=== PATIENT | male | born 1980 | race Caucasian/White ===

== ENCOUNTER 2021-10-06 21:36 | Inpatient (IN) | payer SELFPAY ==
[~2021-10-06] VITALS: Ht 165.1 cm; Wt 102.5 kg
[2021-10-06 23:08] LABS: CHLORIDE 108 mEq/L (98-107)
[2021-10-06 23:12] LABS: ETHANOL BLOOD < 10 mg/dL
[2021-10-06 23:17] LABS: CREATINE KINASE 89 IU/L (39-308)
[2021-10-06 23:19] LABS: BASOPHILS % 0.4 % (0.0-2.0); EOSINOPHILS % 1.3 % (0.0-5.0); LYMPHOCYTES % 12.2 % (20.0-50.0); MEAN CORPUSCULAR HEMOGLOBIN 25.1 pg (28.0-32.0); MEAN CORPUSCULAR VOLUME 79.4 fL (80.0-94.0); MEAN PLATELET VOLUME 8.2 fl (7.4-10.4); MONOCYTES % 12.9 % (2.0-8.0); NEUTROPHILS % 73.2 % (40.0-76.0); PLATELET 254 x1000/uL (130-400); RED BLOOD CELL COUNT 4.78 mill/uL (4.7-6.1); RED CELL DISTRIBUTION WIDTH 20.2 % (11.6-14.6)
[2021-10-06 23:45] LABS: CLARITY URINE CLEAR (CLEAR); COLOR URINE DARK YELLOW (YELLOW); KETONES URINE TRACE (NEGATIVE); LEUKOCYTE ESTERASE URINE NEGATIVE (NEGATIVE); NITRITE URINE NEGATIVE (NEGATIVE); OCCULT BLOOD URINE NEGATIVE (NEGATIVE); PROTEIN URINE TRACE (NEGATIVE); SPECIFIC GRAVITY URINE 1.025 (1.005-1.030)
[2021-10-07] VITALS (7 sets, daily range): BP systolic 48–141; BP diastolic 16–83
[2021-10-07 00:01] LABS: *AMPHETAMINES SCREEN URINE NEGATIVE (NEGATIVE); *BARBITURATES SCREEN URINE NEGATIVE (NEGATIVE); *BENZODIAZEPINES SCREEN URINE NEGATIVE (NEGATIVE); *COCAINE SCREEN URINE NEGATIVE (NEGATIVE)
[2021-10-07 00:02] LABS: CANNABINOID URINE SCREEN NEGATIVE (NEGATIVE); METHADONE URINE SCREEN NEGATIVE (NEGATIVE); OPIATES URINE SCREEN NEGATIVE (NEGATIVE); PHENCYCLIDINE URINE SCREEN NEGATIVE (NEGATIVE)
[2021-10-07] MEDS ORDERED: SODIUM CHLORIDE 0.9% 1000ML BAG (SEPSIS BOLUS) IV ONE (00:15)
[2021-10-07] MEDS ORDERED: CEFTRIAXONE 1,000 MG in DEXTROSE 5% WATER 50 ML IV SCH (01:00)
[2021-10-07] MEDS ORDERED: AZITHROMYCIN 500MG/250ML 250 ML IV SCH (01:00)
[2021-10-07] MEDS ORDERED: CEFTRIAXONE SODIUM 1 G/VIAL ONE (01:05)
[2021-10-07] MEDS ORDERED: HYDROCODONE/ACETAMINOPHEN 5/325MG TABLET PO SCH (05:15)
[2021-10-07] MEDS ORDERED: MAGNESIUM/ALUMINUM HYDROXIDE/SIMETHICONE 30ML UDC PO PRN (08:00)
[2021-10-07] MEDS ORDERED: ACETAMINOPHEN 325MG TABLET PO PRN ×2 (08:00)
[2021-10-07] MEDS ORDERED: IPRATROPIUM/ALBUTEROL 0.5-3(2.5)MG/3ML NEB NEB PRN (08:00)
[2021-10-07] MEDS ORDERED: ENOXAPARIN 40MG/0.4ML SYR SUBCUT SCH (08:00)
[2021-10-07] MEDS ORDERED: CLONIDINE 0.1MG TABLET PO PRN (08:00)
[2021-10-07] MEDS ORDERED: ENOXAPARIN 30MG/0.3ML SYR SUBCUT SCH (09:00)
[2021-10-07] MEDS ORDERED: POTA20TA82 MT (10:09)
[2021-10-07] MEDS ORDERED: FAMO20TA8 MT (10:09)
[2021-10-07] MEDS ORDERED: AMIO100T4 MT (10:09)
[2021-10-07] MEDS ORDERED: FURO40TA5 MT (10:09)
[2021-10-07] MEDS ORDERED: SPIR25TA6 MT (10:09)
[2021-10-07] MEDS ORDERED: NALOXONE HCL 0.4MG/ML VIAL IV PRN (11:15)
[2021-10-07] MEDS ORDERED: FUROSEMIDE 40MG/4ML VIAL IVP SCH (13:30)
[2021-10-07] MEDS: HYDROCODONE/ACETAMINOPHEN 5/325MG TABLET PO PRN ×2 (15:00→21:12)
[2021-10-07 16:51] LABS: INR 1.1; PROTHROMBIN TIME 11.6 sec (9.6-11.0)
[2021-10-07] MEDS: FAMOTIDINE 20MG TABLET PO SCH (18:36)
[2021-10-07] MEDS: AMIODARONE HCL 200 MG TABLET PO SCH (18:37)
[2021-10-07] MEDS: SPIRONOLACTONE 25MG TABLET PO SCH (18:37)
[2021-10-07] MEDS ORDERED: *PATIENT'S OWN MEDICATION STORAGE XX SCH (23:00)
[2021-10-08] VITALS (12 sets, daily range): BP systolic 105–136; BP diastolic 71–97
[2021-10-08] MEDS ORDERED: HYDROCODONE/ACETAMINOPHEN 10/325MG TABLET PO SCH (00:48)
[2021-10-08] MEDS: ONDANSETRON HCL 4MG/2ML INJ IV PRN ×2 (04:46→18:05)
[2021-10-08 05:41] LABS: INR 1.1; PROTHROMBIN TIME 11.5 sec (9.6-11.0)
[2021-10-08 06:15] LABS: BASOPHILS % 0.2 % (0.0-2.0); EOSINOPHILS % 0.8 % (0.0-5.0); HEMATOCRIT. 41.9 % (42.0-52.0); LYMPHOCYTES % 13.8 % (20.0-50.0); MEAN CORPUSCULAR HEMOGLOBIN 25.1 pg (28.0-32.0); MEAN CORPUSCULAR VOLUME 80.6 fL (80.0-94.0); MEAN PLATELET VOLUME 8.5 fl (7.4-10.4); MONOCYTES % 10.7 % (2.0-8.0); NEUTROPHILS % 74.5 % (40.0-76.0); PLATELET 268 x1000/uL (130-400); RED CELL DISTRIBUTION WIDTH 20.1 % (11.6-14.6)
[2021-10-08 06:20] LABS: CHLORIDE 105 mEq/L (98-107)
[2021-10-08 06:31] LABS: PHOSPHORUS 3.9 mg/dL (2.5-4.9)
[2021-10-08] MEDS: SPIRONOLACTONE 25MG TABLET PO SCH (08:38)
[2021-10-08] MEDS: AMIODARONE HCL 200 MG TABLET PO SCH (08:38)
[2021-10-08] MEDS: FAMOTIDINE 20MG TABLET PO SCH (08:38)
[2021-10-08] MEDS ORDERED: FUROSEMIDE 40MG/4ML VIAL IVP SCH (09:00)
[2021-10-08] MEDS: FUROSEMIDE 40MG/4ML VIAL IVP SCH ×2 (09:00→17:57)
[2021-10-08] MEDS ORDERED: SODIUM BICARBONATE 4% (2.4MEQ) 5ML VIAL IV ONE (10:00)
[2021-10-08] MEDS: HYDROCODONE/ACETAMINOPHEN 10/325MG TABLET PO PRN ×2 (10:59→21:49)
[2021-10-08] MEDS: LACTULOSE 20G/30ML UDC PO SCH ×2 (14:18→21:02)
[2021-10-08] MEDS: DILTIAZEM HCL 30MG TABLET PO SCH ×2 (14:19→21:02)
[2021-10-08] MEDS ORDERED: LACTULOSE 20G/30ML UDC PO SCH (22:00)
[2021-10-08] MEDS ORDERED: CYCLOBENZAPRINE 10MG TABLET PO PRN (23:45)
[2021-10-09] VITALS (7 sets, daily range): BP systolic 108–143; BP diastolic 56–78
[2021-10-09 05:21] LABS: BASOPHILS % 0.3 % (0.0-2.0); EOSINOPHILS % 1.1 % (0.0-5.0); HEMATOCRIT. 40.7 % (42.0-52.0); HEMOGLOBIN. 12.9 g/dL (14.0-18.0); LYMPHOCYTES % 8.4 % (20.0-50.0); MEAN CORPUSCULAR HEMOGLOBIN 25.1 pg (28.0-32.0); MEAN PLATELET VOLUME 8.3 fl (7.4-10.4); MONOCYTES % 8.9 % (2.0-8.0); NEUTROPHILS % 81.3 % (40.0-76.0); PLATELET 291 x1000/uL (130-400); RED BLOOD CELL COUNT 5.16 mill/uL (4.7-6.1); RED CELL DISTRIBUTION WIDTH 19.3 % (11.6-14.6)
[2021-10-09 06:09] LABS: CHLORIDE 103 mEq/L (98-107)
[2021-10-09] MEDS: LACTULOSE 20G/30ML UDC PO SCH ×2 (06:29→14:34)
[2021-10-09] MEDS: DILTIAZEM HCL 30MG TABLET PO SCH ×2 (06:30→14:00)
[2021-10-09] MEDS: FUROSEMIDE 40MG/4ML VIAL IVP SCH (06:30)
[2021-10-09] MEDS: AMIODARONE HCL 200 MG TABLET PO SCH (09:31)
[2021-10-09] MEDS: SPIRONOLACTONE 25MG TABLET PO SCH (09:31)
[2021-10-09] MEDS: FAMOTIDINE 20MG TABLET PO SCH (09:31)
[2021-10-09] MEDS ORDERED: SODIUM BICARBONATE 4% (2.4MEQ) 5ML VIAL IV ONE (12:01)
[2021-10-09] MEDS ORDERED: DILT30TA38 PO (15:26)
[2021-10-10 21:01] LABS: HEPATITIS B SURFACE ANTIGEN NEGATIVE
== END 2021-10-09 18:22 | disposition home or self-care (01) ==
LOC: ER 21:36 → 5EST 10-07 02:22 → SUPCPDRO 10-07 07:21 → ENRESERV 10-07 07:26 → 5EST 10-07 09:20
PROVIDERS: ADMIT Internal Medicine; ATTEND Internal Medicine
PROC: 0W993ZZ Drainage of Right Pleural Cavity, Percutaneous Approach (ICD-10-PCS; principal; 2021-10-08)
DX: K74.60 Unspecified cirrhosis of liver (principal); J96.01 Acute respiratory failure with hypoxia; I50.43 Acute on chronic combined systolic (congestive) and diastolic (congestive) heart failure; J94.8 Other specified pleural conditions; E44.0 Moderate protein-calorie malnutrition; E72.20 Disorder of urea cycle metabolism, unspecified; I48.92 Unspecified atrial flutter; I48.91 Unspecified atrial fibrillation; I13.0 Hypertensive heart and chronic kidney disease with heart failure and stage 1 through stage 4 chronic kidney disease, or unspecified chronic kidney disease; D50.9 Iron deficiency anemia, unspecified; K59.00 Constipation, unspecified; N18.9 Chronic kidney disease, unspecified; E80.6 Other disorders of bilirubin metabolism; R74.8 Abnormal levels of other serum enzymes; Z20.822 Contact with and (suspected) exposure to COVID-19; Z68.37 Body mass index [BMI] 37.0-37.9, adult; Z79.899 Other long term (current) drug therapy
CPT/HCPCS: 32555; 36415; 71045; 71250; 74176; 76604; 76700; 80048; 80053; 80076; 80305; 80320; 81003; 82140; 82248; 82550; 82977; 83605; 83615; 83735; 83880; 83986; 84100; 84145; 84484; 85025; 86705; 86709; 86803; 87340; 87426; 87804; 88108; 88312; 93005; 93306; 99291; J0456; J0696; J1650; J1940; J2405; J3490; J7060; G0480